=== PATIENT | male | born 1975 | race Hispanic/Latino ===

== ENCOUNTER 2025-02-07 17:40 | Emergency (ER) | payer SELFPAY ==
--- NOTE | ~2025-02-07 | XR_ITS ---
EXAM: XR foot RT min 3V DATE: 02/07/2025 18:16 HISTORY: pain, swelling, redness, hot to touch . COMPARISON: None available. FINDINGS: Osteopenia. No fracture or dislocation. No lytic or blastic lesion. Joint spaces are maint ained. Minimal Achilles and plantar enthesopathy No erosion or periosteal change. Forefoot soft tissu e swelling. IMPRESSION: No acute osseous finding in the right foot. Reviewed, dictated and finalized at location K.
[2025-02-07 17:57] VITALS: BP 136/93; PULSE 76; RESP 14; TEMP 36.9; O2SAT 100
--- NOTE | 2025-02-07 17:57 | ED_ITS ---
HPI - Extremity Injury (Lower) General Chief Complaint: Extremity Injury, Lower Stated Complaint: R foot pain Time Seen by Provider: 02/07/25 17:57 Source: patient Mode of arrival: ambulatory Limitations: no limitations History of Present Illness HPI Narrative: 49-year-old male presented for complaint of right foot redness, swelling, and pain. Onset 3 days. pain is mostly to the base of the toes and the heel. Endorses possible injury 3 days prior to onset, however he denies complaint of pain at the time. He states he slipped while working but denies twisting the ankle or obvious injury. Been taking ibuprofen or naproxen for symptoms. Related Data Allergies Allergy/AdvReac Type Severity Reaction Status Date / Time No Known Allergies Allergy Verified 02/07/25 18:05 Review of Systems Review of Systems: CONSTITUTIONAL: Denies body aches, fever, chills EYES: Denies visual changes ENT: Denies rhinorrhea, congestion CARDIOVASCULAR: Denies chest pain, palpitations, or edema. RESPIRATORY: Denies cough or dyspnea. SKIN: Denies rash, itching, or wounds. MUSCULOSKELETAL: reports right foot pain NEUROLOGIC: Denies headache, numbness, tingling, or weakness. All systems reviewed & are unremarkable except as noted in HPI and below PMFSH Comments At time of signature, I have reviewed and agree with nursing past medical, surgical, social and family history unless otherwise noted. Please see nursing chart for further information. There is no relevant family history pertinent to the presenting complaint Exam Narrative: GENERAL: Well-appearing CHEST: Speaks in full sentences. No respiratory distress. HEART: Regular rate and rhythm. Normal and equal peripheral pulses. EXTREMITIES: Right dorsal foot with mild erythema, swelling noted. Tender with palpation to distal metatarsals 2-5. Foot has normal strength and sensation, slighlty decreased range of motion of toes due to endorses pain with movement. No ecchymosis, No open wounds, or obvious deformity; pulse palpable and equal bilaterally, skin warm, dry, pink. Capillary refill less than 3 seconds. SKIN: Warm, dry NEURO: Alert and oriented x3. PSYCH: Normal mood and affect Course Course Emergency Course: Patient is aware of diagnosis, understands and agrees to treatment plan. Anticipatory guidance given. Patient agrees to follow-up as directed and is aware of reasons to seek care at the emergency department. Portions of this record may have been created with voice recognition software Level of Care: Express Care Visit Vital Signs Vital signs: Vital Signs Temperature 98.5 F 02/07/25 17:57 Pulse Rate 76 02/07/25 17:57 Respiratory Rate 14 02/07/25 17:57 Blood Pressure 136/93 H 02/07/25 17:57 Pulse Oximetry 100 02/07/25 17:57 Oxygen Delivery Room Air 02/07/25 17:57 Temperature 98.5 F 02/07/25 17:57 Pulse Rate 76 02/07/25 17:57 Respiratory Rate 14 02/07/25 17:57 Blood Pressure 136/93 H 02/07/25 17:57 Pulse Oximetry 100 02/07/25 17:57 Oxygen Delivery Room Air 02/07/25 17:57 Reviewed MDM - Extremity Injury (Lower) MDM Narrative Medical decision making narrative: Discussed physical exam findings and xray. Right foot swelling, redness and pain without injury. No apparent wounds. Will cover for both gout and cellulitis. Advised supportive measures and signs/symptoms to go to the ER. Pt is appropriate for outpt treatment and f/u. Pt is primarily Liberian speaking. Unable to utilize game programer services due to equipment failure. Pt's friend assisted per pt request. Differential Diagnosis Differential diagnosis: Likely other (Plantar fasciitis, heel spur, foot strain/sprain, metatarsal fracture, metatarsalgia, mccray's neuroma) Imaging Data Radiologist's impression: Patient: Soren Patel : 1975 MR#: [id number] Age: 49 Acct:[id number] Loc: [facility] ADM Date: 02/07/25Attending Dr: Ordering Physician: Sonya Sheehan APRN Date of Service: 02/07/25 Procedure(s): XR foot RT min 3V Accession Number(s): [id number] cc: Sonya Sheehan APRN; PAPER CUP MACHINE TENDER PHYSICIAN~ EXAM: XR foot RT min 3V DATE: 02/07/2025 18:16 HISTORY: pain, swelling, redness, hot to touch . COMPARISON: None available. FINDINGS: Osteopenia. No fracture or dislocation. No lytic or blastic lesion. Joint spaces are maintained. Minimal Achilles and plantar enthesopathy No erosion or periosteal change. Forefoot soft tissue swelling. IMPRESSION: No acute osseous finding in the right foot. Discharge Plan Discharge Clinical Impression: Localized swelling of right foot Patient Disposition: Home Condition: Stable Instructions: Antibiotic Form, Cellulitis (ED), Gout (ED) Additional Instructions: antibi?conner para infecciones de la piel esteroide para la gota Visita a tu m?dico en chayo semana Acuda a la jeancarlos de emergencias si los s?ntomas o inquietudes empeoran. Patient Language: Liberian Prescriptions: New cephalexin 500 mg capsule 500 mg PO Q6H 7 Days Qty: 28 0RF methylprednisolone [Medrol (Tadeo)] 4 mg tablets,dose pack See Rx Instructions .ROUTE .COMPLEX Qty: 21 0RF Rx Instructions: orally per package directions Follow-up/Referrals: PHYSICIAN,PAPER CUP MACHINE TENDER [Primary Care Provider] - Time of Disposition: 18:56
== END 2025-02-07 19:00 | disposition home or self-care (01) ==
PROVIDERS: Emergency Provider Nurse Practitioner Family
DX: R22.41 Localized swelling, mass and lump, right lower limb (principal)
CPT/HCPCS: 73630; 99203; G0463